=== PATIENT | male | born 1960 | race Asian ===

== ENCOUNTER 2019-07-09 18:10 | Emergency (ER) | payer OTHER ==
[~2019-07-09] VITALS: Ht 160 cm; Wt 79.4 kg
[2019-07-09 18:16] VITALS: Ht 160 cm; Wt 79.4 kg
[2019-07-09 19:42] LABS: microscopic required? YES; urine erythrocyte TRACE (NEGATIVE)
[2019-07-09 20:01] LABS: BASOPHIL % 0.4 % (0-2); PLATELET COUNT 259 x10^3mcL (130-400); RED CELL DISTRIBUTION WIDTH 12.8 % (11.5-14.5)
[2019-07-09 20:09] LABS: CALCIUM 9.2 mg/dL (8.5-10.1); CARBON DIOXIDE 27.9 mmol/L (21-32); CHLORIDE SERUM 102 mmol/L (98-107); GFR1 > 60 mL/min; GLUCOSE SERUM 102 mg/dL (74-106); POTASSIUM SERUM 3.9 mmol/L (3.5-5.1); SODIUM SERUM 139 mmol/L (136-145)
[2019-07-09 20:13] LABS: ALBUMIN 4.3 g/dL (3.4-5.0); ALKALINE PHOSPHATASE 71 U/L (46-116); ALT/SGPT 133 U/L (16-63); AST/SGOT 66 U/L (15-37); BILIRUBIN TOTAL 0.57 mg/dL (0.20-1.00); LIPASE 130 IU/L (73-393)
[2019-07-09 21:55] VITALS: BP 146/85
== END 2019-07-09 21:55 | disposition home or self-care (01) ==
LOC: ED 18:10
PROVIDERS: Emergency Medicine
DX: R10.2 Pelvic and perineal pain (principal); I10 Essential (primary) hypertension; Z87.438 Personal history of other diseases of male genital organs
CPT/HCPCS: J1885; J2405; J7030